=== PATIENT | female | born 1990 | race Caucasian/White ===

== ENCOUNTER → 2017-01-06 | Outpatient (CLI) | payer MEDICAID ==
[~2017-01-06] MED LIST: ACETAMINOPHEN325 M1 PO; ATIVAN1 M1 PO; AUGMENTIN 875 M1 TAB PO; AUGMENTIN 875-1 EACH PO; BACTRIM DS 8001 TAB PO; CIPRO 500MG TA500 MG PO; ELIMITE5% EX; FLEXERIL10 MG PO; IRON TABLETS325 MG PO; KEFLEX 500MG.500 MG PO; MEDROL 4MG. DOSE4 MG PO; NOMEDS; NOMEDS *; NOMEDS XX; PERCOCET 5/3251 EACH PO; PHENERGAN 25MG.25 M1 PO; POTASSIUM CHLO10 ME3 PO; PRENATAL PLUS1 TA1 PO; PRILOSEC20 M1 PO; PYRIDIUM 200MG200 MG PO; TALWIN NX 50MG50 MG PO; TORADOL10 MG PO; XANAX 0.5MG TA0.5 MG PO; ZOFRAN 8MG TABLE8 MG PO; ZOFRAN4 MG PO; ZYRTEC10 M2 PO; Zofran4 MG PO
--- NOTE | 2017-01-06 19:55 | RADIOLOGY REPORT PS360 ---
US PREG COMP INDICATION: 20 WEEK ANATOMICAL SURVEY TECHNIQUE: ultrasound transabdominal scanning/ MW COMPARISON: No previous relevant studies FINDINGS Single viable intrauterine gestation .Footling breech currently Cervix appear closed, satisfactory & measures 3.4 CM in length. No placenta previa Anterior placenta . Placenta is better visualized and clearly not near the internal os as better confirmed towards end of the today's scan after a contraction just posterior to the os , resolved . Complete survey performed and was unremarkable on the submitted images as in PACS.No discrete anomalies identified on survey imaging by technologist Active fetus. Three-vessel cord with satisfactory umbilical cord insertion. . Survey of brain & ventricles unremarkable. Posterior fossa unremarkable Face and neck survey unremarkable. Nasion. lips. Orbits overall satisfactory on today's survey Diaphragm & views chest unremarkable. Four-chamber heart are visualized satisfactory included cine loop of heart appears satisfactory. movement documented as well abdomen: Both kidneys noted & unremarkable. Stomach noted & satisfactory. spine: Survey of the spine satisfactory with no anomalies identified nor imaged Both arms and legs noted. Appears to be male fetus Amniotic fluid.-Adequate to generous. Maternal adnexa -no gross incidental findings. measurements:. Average ultrasound age 20 weeks 5 days. Gestational age 20 week 4 day... Based on LMP July 1716. BPD = 21 week 2 day OFD = 21 week 1 day HC = 20 week 3 day AC = 20 week 6 day FL = 20 week 1 day Heart rate = 146 BPM. Cerebellum = 20 week 1 day humerus = 20 week 2 day IMPRESSION: Single viable intrauterine gestation. Footling breech currently . 20 week 5 dayaverage ultrasound age Anterior placenta. No previa Active fetus. Anatomical survey within normal limits/ /unremarkable
== END ==
LOC: RAD 14:00
DX: Z36 Encounter for antenatal screening of mother (principal)

== ENCOUNTER 2017-01-09 19:37 | Outpatient (CLI) | payer MEDICAID ==
[~2017-01-09] VITALS: Ht 162.6 cm; Wt 77.1 kg
[~2017-01-09 19:37] MED LIST changes: -POTASSIUM CHLO10 ME3 PO
[2017-01-09 19:56] VITALS: BP 139/78
[2017-01-09 21:28] LABS: LYMPH % 33.5 % (10-50.0)
[2017-01-09 21:41] LABS: URINE BILIRUBIN - DIPSTICK NEGATIVE (NEG); URINE BLOOD NEGATIVE (NEG)
[2017-01-09 21:51] LABS: AMPHETAMINES/METAMPHETAMINES NEGATIVE ng/mL (<1000)
--- NOTE | 2017-01-09 22:23 | HISTORY AND PHYSICAL REPORT ---
Demographics: Admit date: 01/09/17 Chief complaint: Headache PRIMARY DIAGNOSIS: DIZZINESS, HEADACHE, BLURRED VISION, NOSE BLEEDS Allergies: Coded Allergies: codeine (Intermediate, HALLUCINATION 01/09/17) tetanus and diphtheria toxoids (TETANUS & DIPHTHERIA TOXOIDS) (Intermediate, I- HIVES 01/09/17) History of present illness: History of present illness: 26y/o @ 21wks gestation with EDC 05/22/17 presents to L&D with c/o headache and nose bleed that started this afternoon. Pt denies blurred vision or RUQ pain. Pt notes a prior episode of headache as a child but no further history. No previous headache this . Pt denies any visual disturbance or radiation of the headache. Pt notes the headache is directly on top of her head and temporal area. Pt denies numbness or weakness. Denies any fall, or any attributes to light. Denies any neurological symptoms. Notes she was at work and had to leave early due to the headache. Pt also notes nose bleed this afternoon which as since resolve. Pt notes +FM without LOF. Past medical history: Family HX Family Hx Insignificant Yes Immunization HX DT/Tetanus > 10 Years Ago Flu REFUSES Pneumonia Refuses General CAD? No Angina: No SD: No Hypertension? No Hyperlipidemia? No CHF? No DVT? No PE? No COPD? No Asthma? No Anemia? No GERD? No Gastric ulcers? No GI Bleed? No Hernia? No Thyroid Problems? No Hypothyroidism? No CVA? No Seizures? No Diabetes? No Renal Insuffiency? No UTI? Yes Stones? Yes BPH? No GB Disease: No Nephritic Syndrome? No Asplenia? No Hepatitis? No Sickle Cell Disease? No Arthritis? No Migraines? No Cataracts? No Glaucoma? No MRSA? No HIV? No TB? No Anxiety? No Depression? No Cancer? No More? Yes Additional hx: HX OF IV DRUG USE Past Surgical HX Previous Surgery?Y Tonsils HERNIA BILATERAL SALPINGOGRAM 04/2011 C- SECTION X 1 Current home meds: Reported Medications MULTIVIT-MIN W/FE-FA ( Multivitamin Tablet) 1 TAB PO DAILY Acetaminophen 325 MG PO PRN PRN PAIN Social Hx: Smoking HX Tobacco Yes Type Cigarettes Packs/day < 1 PACK Are you/the child exposed to second-hand smoke: Yes Alcohol Alcohol: No Hx of Drug Use Drug Use? No Review of systems: Constitutional No: no symptoms reported, see HPI, chills, diaphoresis, fever, malaise, weakness , other. Eyes No: no symptoms reported, see HPI, blindness, blurred vision, drainage, decreased acuity, foreign body sensation, inflammation, pain, photophobia, previous injury, shadows, tunnel vision, vision change, contact lenses, glasses, other. Ears, Nose, Mouth, Throat No no symptoms reported, No see HPI, No ear pain, No ear discharge, No nose pain , No drooling/excessive saliva, No nose discharge, No nose congestion, No epistaxis, No mouth pain, No mouth swelling, No tongue swelling, No dental caries, No loose teeth, No missing teeth, No throat pain, No throat swelling, No other Respiratory No: no symptoms reported, see HPI, cough, orthopnea, shortness of breath, SOB with excertion, SOB at rest, stridor, wheezing, other. Cardiovascular No no symptoms reported, No see HPI, No chest pain, No edema, No palpitations, No syncope, No other Gastrointestinal/Abdominal No no symptoms reported, No see HPI, No abdomen distended, No abdominal pain, No blood streaked bowels, No constipated, No diarrhea, No difficulty swallowing, No nausea, No poor appetite, No poor fluid intake, No rectal bleeding, No vomiting, No other Genitourinary No: no symptoms reported, see HPI, discharge, abnormal vaginal bleeding, normal menstrual period, vaginal discharge, dysuria, frequency, hesitancy, hematuria, dyspareunia, pain, penis pain, pelvic pain, scrotal/testicular pain, hx stds, genital lesions, other, , labia tenderness, penis tenderness, scrotal tenderness. Musculoskeletal No: no symptoms reported, see HPI, back pain, gout, joint pain, joint swelling, muscle pain, muscle stiffness, neck pain, other. Skin No: no symptoms reported, see HPI, change in color, change in hair/nails, dryness, lesions, lumps, rash, other. Neurological Yes: headache. No: see HPI, no symptoms reported, numbness, tingling, tremors, weakness, parasthesia, seizure disorder. Psychiatric No: no symptoms reported, anxious, depressed, other, withdrawn. Exam: Lab data for last 24 hours: Laboratory Tests 01/09/172049: Sodium 139, Potassium 3.1 L, Chloride 106, Carbon Dioxide 21 L, BUN 6 L, Creatinine 0.4 L, Estimated Creat Clear 262 H, Estimated GFR (MDRD) 194, Glucose 81, Uric Acid 3.0, Calcium 8.9, AST 7 L, ALT 14, PT 9.7, INR 0.91, APTT 31.5, Fibrinogen 350.7, D-Dimer 281, WBC 6.1, RBC 3.81 L, Hgb 11.0 L, Hct 31.8 L, MCV 83.4, RDW 13.8, Plt Count 203, MPV 6.5 L, Gran % 60.8, Gran # 3.7, Lymphocytes % 33.5, Monocytes % 4.1, Eosinophils % 1.4, Basophils % 0.2, Lymphocytes # 2.0, Monocytes # 0.3, Eosinophils # 0.1, Basophils # 0.0, PUBS MCHC 34.5, MCH 28.8 01/09/17 2015: Opiates Screen NEGATIVE, Urine Methadone Screen NEGATIVE, Barbiturates NEGATIVE, Phencyclidine Screen NEGATIVE, Amphetamines Screen NEGATIVE, Benzodiazepines Screen NEGATIVE, Cocaine Screen NEGATIVE, Marijuana (THC) Screen NEGATIVE, Urine Color YELLOW, Urine Appearance SL CLOUDY, Urine pH 6.0, Ur Specific [place] 1.025, Urine Protein NEGATIVE, Urine Ketones TRACE H, Urine Blood NEGATIVE, Urine Nitrate NEGATIVE, Urine Bilirubin NEGATIVE, Urine Urobilinogen 2.0, Ur Leukocyte Esterase NEGATIVE, Ur Squamous Epith Cells 10-20, Calcium Oxalate Crystal 3+, Urine Glucose NEGATIVE Admission vital signs: 1ST Vital Signs Result Date Time B/P 139/78 01/09 1956 Temp 98.1 01/09 1956 Pulse 86 01/09 1956 Resp 18 01/09 1956 Exam General appearance: normal appearance Eyes: normal exam Cardiovascular: normal exam Respiratory: normal exam ABD: normal exam Genitourinary: normal voiding & quantity Extremities: normal exam Skin: normal exam 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 Headache 2. Hypokalemia Plan: Headache-tylenol Hypokalemia-replete with K-Dur PO and advise increase potassium intake at home
--- NOTE | 2017-01-09 23:06 | ACUTE CARE PROGRESS NOTE (QUA) ---
Progress Notes Subjective Date 01/09/17 Time 2303 Note DRUMMOND better since tylenol Patient/family reports: feeling better Objective Findings Last VS-Temp:98.1 B/P:139/78 Pulse:86 Resp:18 SaO2: Last weight lbs:170 oz:0 K.112 Method:Floor Scales Assessment/Plan Problem List 1. Headache 2. Hypokalemia Patient condition Improving Plan: initiate discharge plan This inpt stay is expected to cross 2 MNs from start of care No Comments: advise increase potassium intake via bananas. her primary OB to recheck K+. Pt advised on s/s of hypokalemia DRUMMOND, tylenol prn DRUMMOND. To return if worse or no relief with tylenol or neurological symptoms at 2302
[2017-01-09 23:55] LABS: ABO BLOOD TYPE O; RH BLOOD TYPE POSITIVE
== END 2017-01-09 23:40 | disposition home or self-care (01) ==
LOC: OB 19:37 → OBOUT 19:37
PROVIDERS: Obstetrics & Gynecology
DX: O26.92 Pregnancy related conditions, unspecified, second trimester (principal); Z3A.21 21 weeks gestation of pregnancy; R51 Headache; H53.8 Other visual disturbances; R04.0 Epistaxis

== ENCOUNTER 2017-02-20 17:15 | Outpatient (CLI) | payer MEDICAID ==
[~2017-02-20] VITALS: Ht 162.6 cm; Wt 81.8 kg
[2017-02-20 17:33] VITALS: BP 131/73
[2017-02-20] MEDS ORDERED: POTASSIUM CHLO10 ME3 PO (17:37)
[2017-02-20 18:04] LABS: URINE BILIRUBIN - DIPSTICK NEGATIVE (NEG); URINE BLOOD NEGATIVE (NEG)
[2017-02-20 18:16] LABS: AMPHETAMINES/METAMPHETAMINES NEGATIVE ng/mL (<1000)
== END 2017-02-20 18:15 | disposition home or self-care (01) ==
LOC: OBOUT 17:15 → OB 17:15 → OBOUT 18:15
PROVIDERS: Obstetrics & Gynecology
DX: O26.92 Pregnancy related conditions, unspecified, second trimester (principal); Z3A.27 27 weeks gestation of pregnancy; R51 Headache; M79.89 Other specified soft tissue disorders

== ENCOUNTER 2017-08-19 03:59 | Emergency (ER) | payer MEDICAID ==
[~2017-08-19] VITALS: Ht 162.6 cm; Wt 79.8 kg
[~2017-08-19 03:59] MED LIST changes: +LABETALOL HYDR200 M1 PO; +MAG-OX 400MG T400 MG PO; +MOTRIN 400MG.400 MG PO; +POTASSIUM CHLO10 ME3 PO; +ZANTAC 150150 MG PO
[2017-08-19 04:20] LABS: URINE BILIRUBIN - DIPSTICK NEGATIVE (NEG); URINE BLOOD NEGATIVE (NEG)
[2017-08-19 04:34] LABS: LYMPH # 2.1 K/mm3 (0.7-4.5); LYMPH % 27.6 % (10-50.0)
[2017-08-19 04:39] LABS: HEMOGLOBIN 10.4 g/dL (12.2-16.2)
--- NOTE | 2017-08-19 05:31 | Emergency Room Report ---
History of Present Illness Time Seen by 0400 Presenting Problem in Triage Pt arrived:Walked Presenting Problem:C/O RUQ PAIN WITH RADIATION TO BACK. 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 N Clinical Suspician of Infection? N Mental Status: 1 - Regular (Normal Baseline) Sepsis Risk:Low Sepsis Risk Have you (or family members/close friends) recently traveled outside the [place]? N If Yes, where/when: Have you had exposure to infectious disease within the past month? N TB? Other? Specify: Source patient, RN notes reviewed, family, old records Exam Limitations no limitations Comment pt with abd pain with acute onset with hx of gallstone- Cardiac Chest Pain Chest pain indicative of cardiac No Timing/Duration this evening Severity moderate ALLERGIES Coded Allergies: codeine (Intermediate, HALLUCINATION 05/10/17) tetanus and diphtheria toxoids (TETANUS & DIPHTHERIA TOXOIDS) (Intermediate, I- HIVES 05/10/17) History Medical History General CAD? No Angina: No NV: No Hypertension? No Hyperlipidemia? No CHF? No DVT? No PE? No COPD? No Asthma? No Anemia? No GERD? No Gastric ulcers? No GI Bleed? No Hernia? No Thyroid Problems? No Hypothyroidism? No CVA? No Seizures? No Diabetes? No Renal Insuffiency? No End Stage Renal Disease? No UTI? Yes Stones? Yes BPH? No GB Disease: Yes Nephritic Syndrome? No Asplenia? No Hepatitis? No Sickle Cell Disease? No Arthritis? No Migraines? No Cataracts? No Glaucoma? No MRSA? No HIV? No TB? No Anxiety? No Depression? No Cancer? No More? 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 Respiratory denies cough, denies shortness of breath Cardiovascular denies chest pain, denies palpitations, denies syncope Gastrointestinal see HPI, abdominal pain, nausea, vomiting Genitourinary denies: dysuria, frequency, hesitancy. Musculoskeletal denies back pain, denies joint pain, denies neck pain Skin denies rash Psychiatric/Neurological denies headache, denies seizure Physical Exam Vital Signs Vital Signs Date Time Temp Pulse Resp B/P Pulse O2 O2 Flow FiO2 Ox Delivery Rate 08/19 0530 70 18 111/70 98 08/19 0450 98.4 66 16 140/84 97 08/19 0439 20 08/19 0402 97.6 82 20 182/119 98 - WBC >12,000 or <4,000 or 10% bands? 2 or more SIRS Criteria Met? B/P:111/70 MAP:140 Creatinine >2.0? UA output<0.5ml/kg/hr for 2 hrs? Platelet count >100,000? Lactate >2.0mmol/1? INR >1.2 or PTT > than 60 sec? Evidence of Organ Dysfunction? Provider documented clinical suspician of infection? N Sepsis Criteria Count: 1 Sepsis Risk: Low Sepsis Risk General Appearance no apparent distress Eye Exam - bilateral eye PERRL, bilateral eye EOMI Ear, Nose, Throat normal ENT inspection Neck supple Respiratory Status No: respiratory distress. 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 No Results/Orders Laboratory Tests 08/19/17 0425: Sodium 139, Potassium 3.5, Chloride 105, Carbon Dioxide 24, BUN 12, Creatinine 0.6, Estimated Creat Clear 179, Estimated GFR (MDRD) 121, Glucose 93, Calcium 8.8, Total Bilirubin 0.1 L, AST 12 L, ALT 21, Alkaline Phosphatase 101, Total Protein 7.5, Albumin 3.8, Globulin 3.7 H, Albumin/Globulin Ratio 1.0 L, WBC 7.7, RBC 4.17 L, Hgb 10.4 L, Hct 32.0 L, MCV 76.9 L, RDW 14.0, Plt Count 258 , MPV 8.2, Gran % 63.6, Gran # 4.9, Lymphocytes % 27.6, Monocytes % 3.9, Eosinophils % 4.2, Basophils % 0.7, Lymphocytes # 2.1, Monocytes # 0.3, Eosinophils # 0.3, Basophils # 0.1, PUBS MCHC 32.9, MCH 25.3 L 08/19/17402: Urine Color YELLOW, Urine Appearance CLEAR, Urine pH 7.0, Ur Specific [place] 1.020, Urine Protein NEGATIVE, Urine Ketones NEGATIVE, Urine Blood NEGATIVE, Urine Nitrate NEGATIVE, Urine Bilirubin NEGATIVE, Urine Urobilinogen 0.2, Ur Leukocyte Esterase NEGATIVE, Urine RBC 5-10, Urine WBC OCC, Ur Squamous Epith Cells 3-5, Urine Bacteria 1+, Urine Mucus 1+, Urine Glucose NEGATIVE Current Medication Orders Sig/Roberto Start time Last Medication Dose Route Stop Time Status Admin Ketorolac 30 MG ONCE ONE 08/19 445 DC 08/19 Tromethamine IV 08/19 Ondansetron HCl 4 MG ONCE ONE 08/19 445 DC 08/19 IV 08/19 Ketorolac 0 .STK-MED ONE 08/19 436 DC Tromethamine .ROUTE Ondansetron HCl 0 .STK-MED ONE 08/19 436 DC .ROUTE Sodium Chloride 10 ML PRN PRN 08/19 415 AC IV 08/20 412 Orders Procedure Date/time Status DIET-NOTHING BY MOUTH 08/[address] ABD & PELVIS W/O CONTRAST 08/[address] ABD/PELVIS REQ 08/19 413 Complete IV SALINE LOCK 08/19 413 Active CBC WITH AUTO DIFF 08/19 413 Complete CHEM 12 PROFILE 08/19 413 Complete URINALYSIS/COMPLETE 08/19 406 Complete URINE 08/19 406 Complete XRAY/CT/US XRAY/CT/US CT abdomen, pelvis CT interpretation by discussed w/radiologist Time results known: 528 CT Results abnormal (gallstone) Departure Departure Time of Disposition 528 Disposition DC Home or Self Care(routine) Clinical Impression Primary Impression: Cholelithiasis Qualifiers: Cholelithiasis location: gallbladder Cholecystitis presence: without cholecystitis Biliary obstruction: without biliary obstruction Qualified Code: K80.20 - Calculus of gallbladder without cholecystitis without obstruction Secondary Impressions: Anemia Qualifiers: Anemia type: unspecified type Qualified Code: D64.9 - Anemia, unspecified Condition STABLE Referrals Tayla GUTIERREZ,Devon ABARCA MD,МАРИЯ Bae Patient Instructions DI for Gallstones Additional Instructions please call pcp and surg and have follow up Discharge Counseling Counseled pt/family regarding diagnosis, test results, follow up needs ED Critical Care Critical Care No at 0517
[2017-08-19 05:46] VITALS: BP 111/70
--- NOTE | 2017-08-19 06:33 | RADIOLOGY REPORT PS360 ---
CT ABD PELVIS W/O CONTRAST CLINICAL INDICATION: C/O RUQ PAIN RADIATING INTO BACK ORDERING PHYSICIAN: Brittany Moctezuma MD PATIENT AGE: 27 years COMPARISON: 04/17/2014 TECHNIQUE: Axial images obtained with sagittal and coronal reformats. PROCEDURE: Oral Contrast: None IV Contrast: None . FINDINGS: Lung bases are clear. Liver is unremarkable. There is severe gallbladder distention with heterogeneous density along the posterior aspect of the gallbladder and the gallbladder neck consistent with gallstones. The spleen, adrenal glands, and pancreas are unremarkable. No obvious biliary ductal dilatation. Nonobstructing punctate right renal calculi measuring up to 3 mm in the midpole. No ureteral calculi. No hydronephrosis. Unremarkable urinary bladder. No evidence of appendicitis, diverticulitis, intestinal obstruction, or free air. Small amount fluid is present in the pelvis. Hypoattenuation the left adnexa at 2.5 cm suggesting the left ovarian cyst. No acute bony anomalies. IMPRESSION: 1. Distended gallbladder with cholelithiasis with stones present in the gallbladder neck. 2. Right nephrolithiasis. 3. Left ovarian cyst at 2.5 cm
== END 2017-08-19 05:47 | disposition home or self-care (01) ==
LOC: ER 03:59
PROVIDERS: Emergency Medicine
DX: K80.20 Calculus of gallbladder without cholecystitis without obstruction (principal); D64.9 Anemia, unspecified; Z72.0 Tobacco use
CPT/HCPCS: J2405

== ENCOUNTER → 2017-09-02 | Outpatient (CLI) | payer MEDICAID ==
--- NOTE | 2017-09-02 15:05 | RADIOLOGY REPORT PS360 ---
KNEE-4 OR 5 VIEWS-RT COMPARISON: None HISTORY: Right knee pain TECHNIQUE: AP lateral and oblique views and sunrise view FINDINGS: The femoral condyles tibial plateau and head of the fibula appear normal. The medial lateral joint space are normal. The patella is normal and sits normally within the intercondylar groove. There is no effusion. IMPRESSION: Negative Right knee
== END ==
LOC: RAD 13:42
DX: M25.551 Pain in right hip (principal); M25.552 Pain in left hip

== ENCOUNTER → 2017-09-10 | Outpatient (CLI) | payer MEDICAID ==
--- NOTE | 2017-09-13 07:26 | RADIOLOGY REPORT PS360 ---
MRI-LOW EXT ANY JOINT W/O-RT HISTORY: Right knee pain with instability PAIN IN RIGHT KNEE ORDERING PHYSICIAN: JAM TOMAS MD PATIENT AGE: 27 years COMPARISON: Radiograph 09/02/2017 TECHNIQUE: Standard multiplanar multiecho sequences are performed without contrast. FINDINGS: The cruciate ligaments, collateral ligaments, patellar tendon, and quadriceps tendon have an unremarkable appearance. No obvious meniscal tear. The patellar cartilage is well preserved. Only a small amount fluid is present within the knee joint and may be physiologic. No fracture or dislocation. No bone bruise. No soft tissue mass or obvious muscular injury about the knee. IMPRESSION: Negative MRI of the right knee
== END ==
LOC: RAD 15:03
DX: M25.561 Pain in right knee (principal)

== ENCOUNTER → 2017-11-15 | Outpatient (CLI) | payer MEDICAID ==
[2017-11-15 12:58] LABS: LYMPH # 1.9 K/mm3 (0.7-4.5); LYMPH % 33.5 % (10-50.0)
[2017-11-15 13:07] LABS: HEMOGLOBIN 11.6 g/dL (12.2-16.2)
[2017-11-15 14:52] LABS: BUN 11 mg/dL (7-18)
[2017-11-15 14:58] LABS: GFR (ESTIMATED) 149 ML/MIN (59-)
== END ==
LOC: LAB 12:22
PROVIDERS: Surgery
DX: R10.11 Right upper quadrant pain (principal); R50.9 Fever, unspecified; R11.0 Nausea

== ENCOUNTER → 2017-11-19 | Outpatient (CLI) | payer MEDICAID ==
--- NOTE | 2017-11-19 14:58 | RADIOLOGY REPORT PS360 ---
CT ABD PELVIS W/ CONTRAST CLINICAL INDICATION: Abdominal pain, bloating, nausea, fever, recent gallbladder surgery S/P GB SURGERY, PERSISTANT PAIN, NAUSEA, FEVERS ORDERING PHYSICIAN: Devon Bourne MD PATIENT AGE: 27 years COMPARISON: None TECHNIQUE: Axial images obtained with sagittal and coronal reformats. PROCEDURE: Oral Contrast: Redicat IV Contrast: 75 mL is Isovue-[id number] . FINDINGS: There are minimal atelectatic or fibrotic changes in the lingula. There has been an interval cholecystectomy. Mixed density is present within the gallbladder fossa and may be related to postsurgical change. No definite abscess. Common bile duct is not appear dilated. Spleen, adrenal glands, and pancreas are unremarkable. No hydronephrosis or obstructing ureteral calculi. No intestinal obstruction or free air. Unremarkable appendix. There is a small amount fluid in the cul-de-sac and there is a 3 cm right renal cyst. No acute bony anomalies. IMPRESSION: 1. Interval cholecystectomy. There is some mixed density in the gallbladder fossa. This may be related to postsurgical change with a small amount of hemorrhage. This does not have a typical appearance of an abscess. A small biloma is felt to be less likely as well but not totally excluded. Consider follow-up exam to confirm resolution. 2. 3 cm right ovarian cyst with a small amount fluid in the cul-de-sac
== END ==
LOC: RAD 09:38
DX: R10.11 Right upper quadrant pain (principal); R11.0 Nausea; Z90.49 Acquired absence of other specified parts of digestive tract
CPT/HCPCS: Q9967